=== PATIENT | male | born 1995 | race Caucasian/White ===

== ENCOUNTER 2018-12-22 20:07 | Emergency (ER) | payer SELFPAY ==
[2018-12-22 20:38] VITALS: BP 136/69
--- NOTE | 2018-12-22 20:54 | ER Document Report ---
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 Reports he transported the patient the other day with strep and he is almost sure he has strep now. I have greeted and performed a rapid initial assessment of this patient. A comprehensive ED assessment and evaluation of the patient, analysis of test results and completion of the medical decision making process will be conducted by additional ED providers. Dictation of this chart was performed using voice recognition software; therefore, there may be some unintended grammatical errors. TRAVEL OUTSIDE OF THE [place] IN LAST 30 DAYS: No - Related Data Allergies/Adverse Reactions: No Known Allergies Allergy (Verified 05/07/13 17:06) Past Medical History - Social History Chew tobacco use (# tins/day): No Frequency of alcohol use: Social Drug Abuse: None Family history: Reviewed & Not Pertinent Neurological Medical History: Reports: Hx Migraine Endocrine Medical History: Denies: Hx Diabetes Mellitus Type 1, Hx Diabetes Mellitus Type 2 Past Surgical History: Reports: Hx Oral Surgery - WISDOM TEETH - Immunizations Hx Diphtheria, Pertussis, Tetanus Vaccination: Yes - 2013 Physical Exam - Vital signs Vitals: Temp Pulse Resp BP Pulse Ox 98.9 F 76 18 136/69 H 97 12/22/18 20:37 12/22/18 20:37 12/22/18 20:37 12/22/18 20:37 12/22/18 20:37 Course - Vital Signs Vital signs: Temp Pulse Resp BP Pulse Ox 98.9 F 76 18 136/69 H 97 12/22/18 20:37 12/22/18 20:37 12/22/18 20:37 12/22/18 20:37 12/22/18 20:37
== END 2018-12-22 23:35 | disposition left against medical advice (07) ==
LOC: ER 20:07
DX: J02.9 Acute pharyngitis, unspecified (principal); R50.9 Fever, unspecified; Z20.818 Contact with and (suspected) exposure to other bacterial communicable diseases; Z53.20 Procedure and treatment not carried out because of patient's decision for unspecified reasons
CPT/HCPCS: 87070; 87880